=== PATIENT | female | born 1955 | race Caucasian/White ===

== ENCOUNTER → 2017-06-15 | Outpatient (CLI) | payer MEDICARE, MEDICAID ==
[2017-06-15 11:32] LABS: HEMATOCRIT 42.3 % (37.0-47.0); HEMOGLOBIN 14.5 g/dl (12.5-16.0); MEAN CELL VOLUME 89 fl (80.0-100.0); MEAN CORPUSCULAR HEMOGLOBIN 31 pg (27.0-31.0); MEAN CORPUSCULAR HGB CONC 34 g/dl (33.0-37.0); MEAN PLATELET VOLUME 9.7 fl (7.4-10.4); PLATELET COUNT 272 K/mm3 (130-400); RED BLOOD COUNT 4.75 M/mm3 (4.10-5.30); REDCELL DISTRIBUTION WIDTH-CV 12.6 % (11.5-14.5); WHITE BLOOD COUNT 8.5 K/mm3 (4.8-10.8)
[2017-06-15 12:06] LABS: ERYTHROCYTE SEDIMENTATION RATE 15 mm/hr (0-30)
== END ==
LOC: COL.LAB 10:16
PROVIDERS: Nurse Practitioner
DX: Z47.1 Aftercare following joint replacement surgery (principal); M25.561 Pain in right knee; Z96.651 Presence of right artificial knee joint

== ENCOUNTER 2019-05-23 11:58 | Day surgery (SDC) | payer MEDICARE, MEDICAID ==
[2019-05-23] VITALS (16 sets, daily range): BP systolic 108–152; BP diastolic 64–93; PULSE 70–92; TEMP 97.9–98.1
[~2019-05-23] VITALS: Ht 157.6 cm; Wt 116.5 kg
[2019-05-23] MEDS ORDERED: HCTZ 25MG TAB25 MG PO (13:12)
[2019-05-23] MEDS ORDERED: PRIL40 PO (13:13)
[2019-05-23] MEDS ORDERED: NORVASC 5MG5 MG/TAB PO (13:13)
[2019-05-23] MEDS ORDERED: NITROSTAT0.4 MG/TAB SL (13:14)
[2019-05-23] MEDS ORDERED: ASPIRIN 32325 MG/TAB PO (13:14)
[2019-05-23 13:15] LABS: HEMOGLOBIN 12.2 g/dl (12.5-16.0); MEAN CELL VOLUME 85 fl (80.0-100.0); MEAN CORPUSCULAR HEMOGLOBIN 28 pg (27.0-31.0); MEAN CORPUSCULAR HGB CONC 33 g/dl (33.0-37.0); MEAN PLATELET VOLUME 9.5 fl (7.4-10.4); PLATELET COUNT 314 K/mm3 (130-400); RED BLOOD COUNT 4.35 M/mm3 (4.10-5.30); REDCELL DISTRIBUTION WIDTH-CV 13.1 % (11.5-14.5)
[2019-05-23 13:17] LABS: PROTHROMBIN TIME 12.2 SECONDS (9.7-12.8)
[2019-05-23 13:26] LABS: CALCIUM 9.4 mg/dL (8.4-10.2); CREATININE, serum 0.74 (0.52-1.25); POTASSIUM 3.6 mmol/L (3.4-5.0)
--- NOTE | 2019-05-23 15:37 | NUR ---
SEE MERGE DOCUMENTATION FOR MEDICATION ADMINISTRATION TIMES AND INTRA/POST PROCEDURE SEDATION ASSESSMENTS.
--- NOTE | 2019-05-23 19:08 | NUR ---
Pt up to Room 358 post heart cath at 1730. at bedside. Pt A&O, denies chest pain at this time. Rt radial site with TR band on. No bleeding at site. Good cap refill. No concerns at this time. VSS. Pt tolerating liquids and food.
--- NOTE | 2019-05-23 19:24 | NUR ---
Report given to CAROLYNN Orona. Pt A&O, rt radial site looks good with no bleeding. Hand warm to touch, good cap refill. TR band air to start being released at 1930. No concerns from patient. Call light within reach.
--- NOTE | 2019-05-23 19:45 | NUR ---
Pt active bleeding under TR band. Hand pressure held over site. Called ICU and they said to add an additional 4-5mL of air. Added 5mL and bleeding stopped. No air had been released prior to this. Pt stated that while she was eating, using her left hand she got a pain in the right wrist and she tried to move it and that is when it started to bleed. Good cap refill. At 1999, came to desk and said that his was feeling sick. Went to room and she felt nauseated. Lowered head of bed. Call light within reach. Will continue to monitor. Call made to Dr Roberts and update given.
--- NOTE | 2019-05-23 20:25 | NUR ---
Dr Roberts updated on pt condition. Darinel held tonight per
--- NOTE | 2019-05-23 22:03 | NUR ---
Pt requesting something for pain. Rates right wrist pain 10/10. No bleeding from site. Band still in place. Fentanyl 25mcg given slow IVP. Good cap refill. First 5mL air released. No bleeding noted. 1010 - Pt rates pain 4/10 and states her wrist is feeling better. Will continue to monitor. VS in normal range.
[2019-05-24 03:31] VITALS: BP 123/70; PULSE 81; TEMP 98.2
[2019-05-24 06:53] LABS: CALCIUM 8.9 mg/dL (8.4-10.2); CREATININE, serum 0.73 (0.52-1.25); MAGNESIUM 1.9 mg/dL (1.6-2.3); POTASSIUM 3.6 mmol/L (3.4-5.0)
[2019-05-24 07:00] LABS: BASO % 0.6 % (0.0-2.0); EOS # 0.2 (0.0-0.7); EOS % 2.1 % (0-4.0); GRAN # 4.3 (1.4-6.5); GRAN % 59.4 % (42.2-75.2); HEMOGLOBIN 11.1 g/dl (12.5-16.0); LYMPH % 27.5 % (20.0-51.0); MEAN CELL VOLUME 86 fl (80.0-100.0); MEAN CORPUSCULAR HEMOGLOBIN 28 pg (27.0-31.0); MEAN CORPUSCULAR HGB CONC 33 g/dl (33.0-37.0); MEAN PLATELET VOLUME 9.9 fl (7.4-10.4); MONO # 0.7 (0.1-0.6); MONO % 10.1 % (1.7-9.3); PLATELET COUNT 276 K/mm3 (130-400); RED BLOOD COUNT 3.98 M/mm3 (4.10-5.30); REDCELL DISTRIBUTION WIDTH-CV 13.1 % (11.5-14.5)
[2019-05-24 07:03] LABS: HEMATOCRIT 34.2 % (37.0-47.0)
--- NOTE | 2019-05-24 07:30 | NUR ---
Report given to CAROLYNN Berkowitz.
[2019-05-24 08:04] VITALS: BP 132/77; PULSE 87; TEMP 98
--- NOTE | 2019-05-24 08:46 | NUR ---
Received report from departing nurse Adwoa PRADHAN and will be assisting primary nurse Woo RN with pt cares from [id number].
--- NOTE | 2019-05-24 09:04 | NUR ---
LYNNE's met with the patient and the patient's , Nate ([phone]), to discuss discharge plan. The patient lives in [place] with her . She reports independence with ADLs and has canes. The patient's PCP is Dr. Johan Ash and she receives her medications at the [facility] in [place]. She reports no difficulties obtaining her meds. The patient does not have advanced directives and she was not interested in completing them at this time. The patient plans to return home with her upon discharge. No additional needs at this time.
--- NOTE | 2019-05-24 09:40 | NUR ---
patients right radial access site looks good, has some issues with oozing last night/ hemastasis was acheived by 0001, now covered with gauze and a bandaid, distal pulses are palpable, no sensation lost
--- NOTE | 2019-05-24 10:00 | NUR ---
Assessment completed, alert/oriented, vital signs stable, dneies pain or discomfort, her right radial puncutre site had some bleeidng during the night but hemastais was acheived around midnights, site now covered with bandaid and no bleeding noted, no circulation compromise noted/ radial pulses are palpable, heart RRR, lungs CTA, plans for discharge today, Student nurse doing primary care for patient today
[2019-05-24] MEDS ORDERED: BRILINTA90 MG PO (10:28)
[2019-05-24] MEDS ORDERED: ASPIRIN E.C. 8181 MG PO (10:28)
[2019-05-24] MEDS ORDERED: LIPITOR 80MG80 MG PO (10:30)
[2019-05-24] MEDS ORDERED: ZEBETA 5MG5 MG PO (10:30)
--- NOTE | 2019-05-24 11:03 | NUR ---
Removed INT from left hand. Pressure held following removal for 1 minute. guaze and tape applied. No residual bleeding from site. Pt tolerated well. No redness or warmth at site of removal.
--- NOTE | 2019-05-24 11:44 | NUR ---
Discharge instructions reviewed with the patient and her , instructed to follow up with Cardiology and PCP as we have scheduled for her, disucssed all new medications and medication changes/ scripts sent to Pharmacy in [place] for her, right radial puncture site bathing/ activity restrictions discussed, IV and tele removed, she is ambulatory and student nurse escorted them out the door
--- NOTE | 2019-05-24 12:09 | NUR ---
Primary nurse was assisted with [id number] patient care by [employer] student Leon Gates and [employer] instructor Maria Eugenia Hammond RN-BC.
== END 2019-05-24 11:49 | disposition home or self-care (01) ==
LOC: COL.CAR 11:58 → MEDICAL 18:41 → COL.CAR 05-24 11:49
PROVIDERS: Internal Medicine Cardiovascular Disease
DX: I25.110 Atherosclerotic heart disease of native coronary artery with unstable angina pectoris (principal); K21.9 Gastro-esophageal reflux disease without esophagitis; I10 Essential (primary) hypertension; Z90.49 Acquired absence of other specified parts of digestive tract; Z90.710 Acquired absence of both cervix and uterus; Z79.82 Long term (current) use of aspirin; Z82.49 Family history of ischemic heart disease and other diseases of the circulatory system; Z88.8 Allergy status to other drugs, medicaments and biological substances
CPT/HCPCS: OP; C1725; C1769; C1874; C1887; C9600; J1644; J2250; J2405; J3010

== ENCOUNTER 2020-01-25 08:35 | Day surgery (SDC) | payer MEDICARE, MEDICAID ==
[~2020-01-25] VITALS: Ht 157.5 cm; Wt 110.5 kg
[~2020-01-25 08:35] MED LIST: ASPIRIN 32325 MG/TAB PO; ASPIRIN E.C. 8181 MG PO; BRILINTA90 MG PO; HCTZ 25MG TAB25 MG PO; LIPITOR 80MG80 MG PO; NITROSTAT0.4 MG/TAB SL; NORVASC 5MG5 MG/TAB PO; PRIL40 PO; ZEBETA 5MG5 MG PO
[2020-01-25 09:25] VITALS: BP 123/63; PULSE 74; TEMP 98.3
[2020-01-25] MEDS ORDERED: ZEBETA 5MG5 MG PO (09:32)
[2020-01-25] MEDS ORDERED: BRILINTA90 MG PO (09:32)
[2020-01-25] MEDS ORDERED: ASPIRIN 81M81 MG/TA2 PO (09:34)
[2020-01-25] MEDS ORDERED: LIPITOR 80MG80 MG PO (09:34)
[2020-01-25] MEDS ORDERED: IMDUR 60MG60 MG/TAB PO (09:35)
[2020-01-25] MEDS ORDERED: ZYLOPRIM 100MG100 MG PO (09:37)
--- NOTE | 2020-01-25 09:38 | NUR ---
TO RM AT 0853- CALL LIGHT IN REACH WILL BE CALLED FOR RIDE HOME
[2020-01-25 13:25] VITALS: BP 108/43; PULSE 84; TEMP 97.6
--- NOTE | 2020-01-25 13:25 | NUR ---
TO RM 2 PER CART FROM PACU. ALERT ORIENTED X3, TALKING TO STAFF. C/O PAIN 2/10 AND DENIES NAUSEA. LEFT KNEE DRESSING CLEAN DRY INTACT. ICE OVER KNEE AND ELEVATED RECEIVED WATER
[2020-01-25 13:40] VITALS: BP 121/53; PULSE 83
--- NOTE | 2020-01-25 13:40 | NUR ---
SHANEL HOFF. PATIENT SITTING UP IN BED AND TEXTING ON PHONE. NO CHANGES IN PAIN
[2020-01-25 13:55] VITALS: BP 129/70; PULSE 80
--- NOTE | 2020-01-25 13:55 | NUR ---
ATE 100% AND TOLERATED WELL.
[2020-01-25 14:10] VITALS: BP 134/72; PULSE 83
--- NOTE | 2020-01-25 14:10 | NUR ---
ENCOURAGED TO COUGH AND DEEP BREATH. SATS 93% ON ROOM AIR.
--- NOTE | 2020-01-25 14:30 | NUR ---
RECEIVED DISCHARGE INSTRUCTIONS AND VERBALIZED UNDERSTANDING. DISONTINUED IV AND INT- PATIENT GETTING DRESSED.
--- NOTE | 2020-01-25 14:30 | NUR ---
AMBULATED TO BATHROOM WITH WALKER. VOIDED AND TOLERATED WELL. AMBULATED BACK TO WITH STAND BY ASSIST.
--- NOTE | 2020-01-25 14:45 | NUR ---
DISCHARGED PER WC BY NURSING STAFF TO PRIVATE CAR IN CARE OF SONRuss FERNANDEZ.
== END 2020-01-25 15:01 | disposition home or self-care (01) ==
LOC: SDCO 08:35
DX: M23.252 Derangement of posterior horn of lateral meniscus due to old tear or injury, left knee (principal); M94.8X6 Other specified disorders of cartilage, lower leg; M22.2X2 Patellofemoral disorders, left knee; I25.10 Atherosclerotic heart disease of native coronary artery without angina pectoris; K21.9 Gastro-esophageal reflux disease without esophagitis; I10 Essential (primary) hypertension; E78.00 Pure hypercholesterolemia, unspecified; M06.9 Rheumatoid arthritis, unspecified; M10.9 Gout, unspecified; Z90.49 Acquired absence of other specified parts of digestive tract; Z96.651 Presence of right artificial knee joint; Z79.899 Other long term (current) drug therapy; Z95.5 Presence of coronary angioplasty implant and graft; Z79.82 Long term (current) use of aspirin
CPT/HCPCS: 29881; G0289; J0690; J2405; J2704; J3010; J7120

== ENCOUNTER → 2023-01-18 | Outpatient (CLI) | payer MEDICARE, MEDICAID ==
[~2023-01-18] MED LIST changes: +ASPIRIN 81M81 MG/TA2 PO; +IMDUR 60MG60 MG/TAB PO; +ZYLOPRIM 100MG100 MG PO
[2023-01-18 12:08] LABS: HEMATOCRIT 42.4 % (37.0-47.0); HEMOGLOBIN 14.8 g/dl (12.5-16.0); MEAN CELL VOLUME 88 fl (80.0-100.0); MEAN CORPUSCULAR HEMOGLOBIN 31 pg (27-31); MEAN CORPUSCULAR HGB CONC 35 g/dl (33.0-37.0); MEAN PLATELET VOLUME 9.5 fl (7.4-10.4); PLATELET COUNT 280 K/mm3 (130-400); RED BLOOD COUNT 4.84 M/mm3 (4.10-5.30); REDCELL DISTRIBUTION WIDTH-CV 12.3 % (11.5-14.5)
[2023-01-18 12:35] LABS: ERYTHROCYTE SEDIMENTATION RATE 20 mm/hr (0-30)
== END ==
LOC: COL.LAB 11:47
PROVIDERS: Nurse Practitioner
DX: M25.562 Pain in left knee (principal)